=== PATIENT | female | born 1960 | race Caucasian/White ===

== ENCOUNTER 2018-10-01 14:23 | Emergency (ER) | payer OTHER ==
[~2018-10-01] VITALS: Ht 165.1 cm; Wt 77.1 kg
--- NOTE | 2018-10-01 14:30 | NUR ---
Patient to ER bed 07 to gown for evaluation. Side rails up.
[2018-10-01] MEDS ORDERED: NACL 0.9% 1,000 ML IV ONE (14:32)
--- NOTE | 2018-10-01 14:32 | NUR ---
ASSUMED CARE OF PATIENT, HERE FOR SHORTNESS SINCE YESTERDAY, MILD WHEEZES NOTED. ABLE TO SPEAK IN COMPLETE SENTENCES.
--- NOTE | 2018-10-01 14:35 | NUR ---
ER at bedside examining patient.
[2018-10-01] MEDS ORDERED: methylPREDNISolone SOD SUCC/PF 62.5 MG/ML VIAL IVP ONE (14:45)
[2018-10-01] MEDS ORDERED: IPRATROPIUM BROM 0.5 MG/2.5 ML VIAL.NEB (ATROVENT) IH ONE ×2 (14:45→15:45)
[2018-10-01] MEDS ORDERED: ALBUTEROL SULFATE 0.083% 2.5 MG/3 ML VIAL.NEB IH ONE ×2 (14:45→15:45)
[2018-10-01 15:13] LABS: BASOPHILS % (AUTO) 0.8 % (0.0-2.0); EOSINOPHILS # (AUTO) 0.3 K/uL (0.0-0.4); EOSINOPHILS % (AUTO) 6.1 % (0.0-4.0); HEMOGLOBIN 12.9 g/dL (12.0-16.0); LYMPHOCYTES # (AUTO) 1.6 K/uL (1.0-5.5); LYMPHOCYTES % (AUTO) 30.1 % (20.5-51.5); MEAN CORPUSCULAR HEMOGLOBIN 30 pg (27-31); MEAN CORPUSCULAR HGB CONC 33 % (32-36); MEAN CORPUSCULAR VOLUME 89 fL (79.0-98.0); MONOCYTES # (AUTO) 0.7 K/uL (0.0-1.0); MONOCYTES % (AUTO) 12.2 % (1.7-9.3); NEUTROPHILS # (AUTO) 2.9 K/uL (1.8-7.7); NEUTROPHILS % (AUTO) 50.8 % (40.0-70.0); PLATELET COUNT (AUTO) 217 K/uL (130-430); RED BLOOD CELL COUNT(AUTO) 4.38 MIL/uL (4.2-6.2); RED CELL DISTRIBUTION WIDTH 12.3 % (9.0-15.0); WHITE BLOOD COUNT (AUTO) 5.5 K/uL (4.8-10.8)
[2018-10-01 15:25] LABS: PROTHROMBIN TIME 10.5 SECS (9.5-12.5)
[2018-10-01 15:27] LABS: CALCIUM 8.6 mg/dL (8.4-11.0); CREATININE 0.81 mg/dL (0.55-1.30); POTASSIUM 3.5 mmol/L (3.5-5.1)
[2018-10-01 15:30] LABS: ALBUMIN 3.2 g/dL (3.4-4.8); TOTAL BILIRUBIN 0.5 mg/dL (0.0-1.0)
--- NOTE | 2018-10-01 15:50 | NUR ---
[place] of care received at this time, Pt receiving a breathing treatment , VSS, skin pink and warm, cap refill <3.
--- NOTE | 2018-10-01 15:55 | NUR ---
RT at bedside
[2018-10-01] MEDS ORDERED: ACETAMINOPHEN 500 MG TABLET PO ONE (16:15)
--- NOTE | 2018-10-01 16:45 | NUR ---
Pt on stable condition, VS WNL.
[2018-10-01 17:21] VITALS: BP_SYST 167
--- NOTE | 2018-10-01 17:24 | NUR ---
Patient given written and verbal discharge instructions and verbalizes understanding. ER MD discussed with patient the results and treatment provided. Patient in stable condition. ID arm band removed. Rx of Proventil,Prednisone, Robitussin,Zythromax given. Patient educated on pain management and to follow up with PMD. Pain Scale 0/10. Opportunity for questions provided and answered. Medication side effect fact sheet provided.
== END 2018-10-01 17:24 | disposition home or self-care (01) ==
LOC: SED 14:23
DX: J20.9 Acute bronchitis, unspecified (principal); I10 Essential (primary) hypertension
CPT/HCPCS: 36415; 71045; 80053; 82150; 82550; 82803; 83605; 83690; 83880; 84484; 85025; 85379; 85610; 85730; 87040; 93005; 94640; 96374; 99284; J2930; J7030; J7613

== ENCOUNTER 2018-12-27 17:58 | Emergency (ER) | payer OTHER ==
[~2018-12-27] VITALS: Ht 165.1 cm; Wt 82.1 kg
[2018-12-27 18:11] VITALS: BP_SYST 159
--- NOTE | 2018-12-27 18:48 | NUR ---
Patient to ER bed 4 for evaluation. Report given to
--- NOTE | 2018-12-27 18:49 | NUR ---
Pt brought by self,A&Ox4, pt presents to ER with sudden episode of redness and pain on L eye, denies blurred vision, skin pink and warm,cap refill<3.
--- NOTE | 2018-12-27 19:41 | NUR ---
ER at bedside examining patient.
--- NOTE | 2018-12-27 20:55 | NUR ---
Patient eloped from the ER. Discharge instructions was not given or signed due to patient eloping. Charge nurse and MD aware.
== END 2018-12-27 20:55 | disposition left against medical advice (07) ==
LOC: SED 17:58
DX: H11.32 Conjunctival hemorrhage, left eye (principal); I10 Essential (primary) hypertension
CPT/HCPCS: 99282

== ENCOUNTER 2019-07-11 09:05 | Outpatient (CLI) | payer OTHER ==
[2019-07-11 09:27] LABS: BASOPHILS # (AUTO) 0.1 K/uL (0.0-0.2); EOSINOPHILS # (AUTO) 0.3 K/uL (0.0-0.4); EOSINOPHILS % (AUTO) 4.4 % (0.0-4.0); HEMATOCRIT 41.8 % (36-48); HEMOGLOBIN 14.1 g/dL (12.0-16.0); LYMPHOCYTES # (AUTO) 2.1 K/uL (1.0-5.5); MEAN CORPUSCULAR HEMOGLOBIN 31 pg (27-31); MEAN CORPUSCULAR HGB CONC 34 % (32-36); MEAN CORPUSCULAR VOLUME 92 fL (79.0-98.0); MONOCYTES # (AUTO) 0.5 K/uL (0.0-1.0); MONOCYTES % (AUTO) 8.2 % (1.7-9.3); NEUTROPHILS # (AUTO) 3.1 K/uL (1.8-7.7); NEUTROPHILS % (AUTO) 51.4 % (40.0-70.0); PLATELET COUNT (AUTO) 223 K/uL (130-430); RED BLOOD CELL COUNT(AUTO) 4.57 MIL/uL (4.2-6.2); RED CELL DISTRIBUTION WIDTH 12.5 % (9.0-15.0); WHITE BLOOD COUNT (AUTO) 6.1 K/uL (4.8-10.8)
[2019-07-11 09:50] LABS: ALBUMIN 3.3 g/dL (3.4-4.8); CREATININE 0.81 mg/dL (0.55-1.30); POTASSIUM 4.4 mmol/L (3.5-5.1); TOTAL BILIRUBIN 0.5 mg/dL (0.0-1.0)
[2019-07-11 10:14] LABS: CALCIUM 9.4 mg/dL (8.4-11.0); THYROID STIMULATING HORMONE 1.41 uIu/mL (0.36-3.74)
== END 2019-07-11 20:00 | disposition home or self-care (01) ==
LOC: SLB 09:05
PROVIDERS: ATTEND Internal Medicine
DX: Z12.11 Encounter for screening for malignant neoplasm of colon (principal); R53.83 Other fatigue; E78.5 Hyperlipidemia, unspecified; E55.9 Vitamin D deficiency, unspecified; I10 Essential (primary) hypertension
CPT/HCPCS: 36415; 80053; 80061; 82306; 84443-TC; 85025

== ENCOUNTER 2019-07-19 12:13 | Outpatient (CLI) | payer OTHER | END 2019-07-19 20:15 | disposition home or self-care (01) | LOC: SLB 12:13 | PROVIDERS: ATTEND Internal Medicine | DX: Z12.11 Encounter for screening for malignant neoplasm of colon (principal); R53.83 Other fatigue; I10 Essential (primary) hypertension; E78.5 Hyperlipidemia, unspecified; E55.9 Vitamin D deficiency, unspecified | CPT/HCPCS: 82272 ==

== ENCOUNTER 2020-02-09 09:00 | Outpatient (CLI) | payer OTHER ==
[2020-02-09 09:42] LABS: BASOPHILS # (AUTO) 0.1 K/uL (0.0-0.2); BASOPHILS % (AUTO) 0.9 % (0.0-2.0); EOSINOPHILS # (AUTO) 0.2 K/uL (0.0-0.4); EOSINOPHILS % (AUTO) 2.5 % (0.0-4.0); HEMATOCRIT 41.9 % (36-48); HEMOGLOBIN 14.1 g/dL (12.0-16.0); LYMPHOCYTES # (AUTO) 2.6 K/uL (1.0-5.5); LYMPHOCYTES % (AUTO) 40.6 % (20.5-51.5); MEAN CORPUSCULAR HEMOGLOBIN 31 pg (27-31); MEAN CORPUSCULAR HGB CONC 34 % (32-36); MEAN CORPUSCULAR VOLUME 91 fL (79.0-98.0); MONOCYTES # (AUTO) 0.5 K/uL (0.0-1.0); MONOCYTES % (AUTO) 7.7 % (1.7-9.3); NEUTROPHILS # (AUTO) 3.1 K/uL (1.8-7.7); NEUTROPHILS % (AUTO) 48.3 % (40.0-70.0); PLATELET COUNT (AUTO) 226 K/uL (130-430); RED CELL DISTRIBUTION WIDTH 12.6 % (9.0-15.0); WHITE BLOOD COUNT (AUTO) 6.4 K/uL (4.8-10.8)
[2020-02-09 10:13] LABS: ALBUMIN 3.3 g/dL (3.4-4.8); CALCIUM 8.5 mg/dL (8.4-11.0); CREATININE 0.94 mg/dL (0.55-1.30); POTASSIUM 4.2 mmol/L (3.5-5.1); THYROID STIMULATING HORMONE 1.7 uIu/mL (0.36-3.74); TOTAL BILIRUBIN 0.6 mg/dL (0.0-1.0)
[2020-02-09 10:40] LABS: ERYTHROCYTE SEDIMENTATION RATE 22 MM/HR (0-20)
== END 2020-02-09 21:17 | disposition home or self-care (01) ==
LOC: SLB 09:00
DX: M25.861 Other specified joint disorders, right knee (principal); L40.9 Psoriasis, unspecified
CPT/HCPCS: 36415; 80053; 80061; 84443-TC; 85025; 85651-TC